=== PATIENT | male | born 1985 | race Two or more races ===

== ENCOUNTER 2024-02-10 10:48 | Emergency (ER) | payer MEDICAID ==
[~2024-02-10] VITALS: Ht 165.1 cm; Wt 113.6 kg
[2024-02-10 10:56] VITALS: BP 144/88; PULSE 77; RESP 16; TEMP 98
[2024-02-10] MEDS ORDERED: IBUP-1506 PO (10:59)
[2024-02-10] MEDS ORDERED: PERCT PO (13:24)
[2024-02-10] MEDS ORDERED: OXYC-38 PO (13:31)
[2024-02-10] MEDS: KETOROLAC TROMETHAMINE 60 MG/2 ML VIAL IM ONE (13:31)
[2024-02-10] MEDS: METHOCARBAMOL 500 MG TABLET PO ONE (13:31)
[2024-02-10] MEDS ORDERED: METH-661 PO (14:43)
== END 2024-02-10 15:05 | disposition home or self-care (01) ==
LOC: EMS 10:48
DX: M54.50 Low back pain, unspecified (principal); F12.90 Cannabis use, unspecified, uncomplicated
CPT/HCPCS: 99283; 96372; J1885